=== PATIENT | male | born 1970 | race Caucasian/White ===

== ENCOUNTER 2019-11-05 10:18 | Emergency (ER) | payer BC ==
[2019-11-05] MEDS ORDERED: Lidocaine 1% PF 5 ML VIAL ONE (10:55)
--- NOTE | 2019-11-05 12:39 | RAD ---
LEFT THUMB 3 VIEWS: Date: 11/05/2019 HISTORY: Thumb injury from table saw. There is history of a remote table saw injury with partial amputation. 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 There is now a transverse fracture through the distal aspect of the proximal phalanx presumably repre senting current table saw injury. The distal phalanx is missing and is presumed amputated from the pr ior table saw injury. POS: [facility]
[2019-11-05] MEDS ORDERED: Bacitracin 1 PK ONE (12:47)
== END 2019-11-05 12:57 | disposition home or self-care (01) ==
LOC: ERS 10:18
DX: S62.512B Displaced fracture of proximal phalanx of left thumb, initial encounter for open fracture (principal); F32.9 Major depressive disorder, single episode, unspecified; Z79.899 Other long term (current) drug therapy; W23.0XXA Caught, crushed, jammed, or pinched between moving objects, initial encounter
CPT/HCPCS: 12002